=== PATIENT | female | born 1965 | race Caucasian/White ===

== ENCOUNTER 2018-07-02 15:37 | Emergency (ER) | payer MEDICAID ==
[2018-07-02 15:42] VITALS: RESP 18
[2018-07-02] MEDS ORDERED: Bacitracin 500 Units/gm Oint Foilpak UD TOP ONE (15:55)
[2018-07-02] MEDS ORDERED: Bacitracin 500 Units/gm Oint Foilpak UD ONE (16:00)
--- NOTE | 2018-07-02 16:07 | C.PDOC ---
Time Seen by Provider: 07/02/18 15:45 Chief Complaint (Nursing): Bite History Per: Patient, Family, Rn Peritoneal Dialysis History/Exam Limitations: language barrier Onset/Duration Of Symptoms: Days (1) Current Symptoms Are (Timing): Still Present Location Of Injury: Left: Hand (Middle finger) Quality Of Symptoms: Painful Severity: Mild Additional History Per: Prior Records - Animal Bite Description Of The Attack: Other (Trying to separate her dog and neighbor's dog.) Description Of The Animal: Neighbor's Pet Reports Animal Appears: Well Animal Control Notified: Yes Past Medical History Reviewed: Historical Data, Nursing Documentation, Vital Signs Vital Signs: Last Vital Signs Temp 98.3 F 07/02/18 15:40 Pulse 91 H 07/02/18 15:40 Resp 18 07/02/18 15:40 BP 140/87 07/02/18 15:40 Pulse Ox 99 07/02/18 15:40 - Medical History PMH: Diabetes, HTN Family History: States: Unknown Family Hx - Social History Hx Tobacco Use: No Hx Alcohol Use: No Hx Substance Use: No - Immunization History Hx Tetanus Toxoid Vaccination: No Hx Influenza Vaccination: No Review Of Systems Except As Marked, All Systems Reviewed And Found Negative. Constitutional: Negative for: Fever, Weakness Cardiovascular: Negative for: Chest Pain Respiratory: Negative for: Shortness of Breath Musculoskeletal: Negative for: Hand Pain Skin: Negative for: Rash Neurological: Negative for: Weakness, Numbness Physical Exam - Physical Exam Appears: Non-toxic, No Acute Distress Skin: Normal Color, Warm, Dry Head: Atraumatic Neck: Normal ROM, Supple Extremity: Normal ROM, Capillary Refill (wnl), No Deformity, Other (1 cm laceration on tip of left middle finger) Pulses: Left Radial: Normal Neurological/Psych: Oriented x3, Normal Motor, Normal Sensation ED Course And Treatment O2 Sat by Pulse Oximetry: 99 Pulse Ox Interpretation: Normal Disposition Counseled Patient/Family Regarding: Diagnosis, Need For Followup, Rx Given - Disposition Disposition: HOME/ ROUTINE Disposition Time: 16:07 Condition: STABLE Additional Instructions: Follow up with your primary doctor. Have dog observed for 10 days for any corbett ges in behavior. Return to the ER immediate if dog exhibits changes in behavior, you develop redness, swelling, discharge, fever, worsening of symptoms or if you have any other concerns. Prescriptions: Amoxicillin/Clavulanate [Augmentin 875 MG-125 MG] 1 tab PO BID #14 tab Instructions: Animal Bite (ED) Forms: [employer] (Vincentian) Print Language: MALAWIAN - Clinical Impression Clinical Impression: Dog bite of middle finger
[2018-07-02 16:14] VITALS: BP 118/80; PULSE 74; TEMP 98.9; O2SAT 96
== END 2018-07-02 16:23 | disposition home or self-care (01) ==
LOC: C.ER 15:37
DX: S61.253A Open bite of left middle finger without damage to nail, initial encounter (principal); W54.0XXA Bitten by dog, initial encounter